=== PATIENT | female | born 1955 | race African-American/Black ===

== ENCOUNTER → 2016-12-26 | Outpatient (CLI) | payer OTHER | LOC: CAT 10:50 | DX: K92.1 Melena (principal); R10.9 Unspecified abdominal pain ==

== ENCOUNTER → 2018-05-29 | Outpatient (CLI) | payer OTHER | LOC: NUC 09:20 | DX: M85.89 Other specified disorders of bone density and structure, multiple sites (principal); Z78.0 Asymptomatic menopausal state; Z79.52 Long term (current) use of systemic steroids ==

== ENCOUNTER → 2018-07-01 | Outpatient (CLI) | payer OTHER | LOC: ULTRA 08:59 | DX: E04.1 Nontoxic single thyroid nodule (principal); R59.9 Enlarged lymph nodes, unspecified ==

== ENCOUNTER → 2019-02-04 | Outpatient (CLI) | payer OTHER | LOC: ULTRA 12:24 | DX: E04.1 Nontoxic single thyroid nodule (principal) ==

== ENCOUNTER → 2019-12-24 | Outpatient (CLI) | payer OTHER | LOC: RAD 14:29 | PROVIDERS: ATTEND Nurse Practitioner | DX: M43.17 Spondylolisthesis, lumbosacral region (principal); M50.323 Other cervical disc degeneration at C6-C7 level; M25.511 Pain in right shoulder; I70.0 Atherosclerosis of aorta; V89.2XXA Person injured in unspecified motor-vehicle accident, traffic, initial encounter; Y93.89 Activity, other specified; Y92.89 Other specified places as the place of occurrence of the external cause; Y99.8 Other external cause status ==

== ENCOUNTER → 2020-01-03 | Outpatient (CLI) | payer OTHER | LOC: MRI 11:54 | PROVIDERS: ATTEND Nurse Practitioner | DX: M51.16 Intervertebral disc disorders with radiculopathy, lumbar region (principal); M47.26 Other spondylosis with radiculopathy, lumbar region; M48.061 Spinal stenosis, lumbar region without neurogenic claudication ==

== ENCOUNTER → 2020-10-05 | Outpatient (CLI) | payer OTHER | LOC: CAT 09:19 | PROVIDERS: ATTEND Family Medicine | DX: Z12.2 Encounter for screening for malignant neoplasm of respiratory organs (principal); I25.10 Atherosclerotic heart disease of native coronary artery without angina pectoris; I70.0 Atherosclerosis of aorta; M47.814 Spondylosis without myelopathy or radiculopathy, thoracic region; R91.1 Solitary pulmonary nodule; Z87.891 Personal history of nicotine dependence ==

== ENCOUNTER → 2020-10-17 | Outpatient (CLI) | payer OTHER | LOC: ULTRA 09:34 | PROVIDERS: ATTEND Nurse Practitioner | DX: K80.20 Calculus of gallbladder without cholecystitis without obstruction (principal); N28.1 Cyst of kidney, acquired ==